=== PATIENT | female | born 1990 | race American Indian/Alaskan Native ===

== ENCOUNTER 2017-03-03 10:07 | Emergency (ER) | payer MEDICAID ==
[2017-03-03 10:49] VITALS: BP 126/82
--- NOTE | 2017-03-03 11:40 | Emergency Department Report ---
HPI - General Chief Complaint: Upper Respiratory Infection Time Seen by Provider: 03/03/17 11:34 - HPI HPI: This is a 26-year-old Afro-[place] female presents to the emergency department with a four-day history of bilateral earaches, throat discomfort and scratchiness and the sensation that there is some swelling in the throat as well. She denies any drooling or trismus. She denies any chest pain, fever, cough, nausea and vomiting. She denies any past medical history. She's been using [id number] anti-histamines for symptoms that any relief. Her primary care physician is Dr. Yevgeniy Goodman but she is not seen him regarding her symptoms. No recent travel or sick contacts at home. 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 ED Past Medical Hx - Past Medical History Previous Medical History?: No Hx Psychiatric Treatment: Yes (anxiety) Additional medical history: Intestinal problems @ age 3, chest pain and anxiety - Surgical History Past Surgical History?: No - Social History Smoking Status: Never Smoker Substance Use Type: None - Medications Home Medications: Home Medications Medication Instructions Recorded Confirmed Last Taken Type Cryselle-28 Tablet PO DAILY 11/20/14 11/20/14 11/20/14 History Famotidine [Pepcid] 20 mg PO BID #60 tablet 11/20/14 Unknown Rx Ibuprofen [Motrin] 800 mg PO Q8HR PRN #15 tablet 05/10/15 Unknown Rx Azithromycin [Zithromax Z-GRIFFIN] 250 mg PO DAILY #6 tab 03/03/17 Unknown Rx Fluticasone [Flonase] 1 spray NS BID #1 bottle 03/03/17 Unknown Rx ED Review of Systems ROS: Stated complaint: THROAT TIGHTNESS/EARACHE/HEADACHE/NOSE BLEED Other details as noted in HPI Comment: All other systems reviewed and negative Constitutional: denies: chills, fever Eyes: denies: eye pain, eye discharge, vision change ENT: ear pain, throat pain, epistaxis Respiratory: denies: cough, shortness of breath, wheezing Cardiovascular: denies: chest pain, palpitations Gastrointestinal: denies: abdominal pain, nausea, diarrhea Genitourinary: denies: urgency, dysuria, discharge Musculoskeletal: denies: back pain, joint swelling, arthralgia Skin: denies: rash, lesions Neurological: denies: headache, weakness, paresthesias Physical Exam - Physical Exam Vital Signs: Vital Signs 03/03/17 10:46 Temperature 98.2 F Pulse Rate 78 Respiratory 16 Rate Blood Pressure 126/82 O2 Sat by Pulse 100 Oximetry Physical Exam: GENERAL: The patient is well-developed well-nourished. HEENT: Normocephalic. Atraumatic. Extraocular motions are intact. Patient has moist mucous membranes. Pupils equal reactive to light bilaterally. Boggy nasal mucosa bilaterally. Oropharynx does not show any tonsillar hypertrophy or erythema but the posterior pharynx has a cobblestoning appearance. Patient has a scratchy sounding hoarse throat. Normal appearing bilateral external ear canals and tympanic membranes. NECK: Supple. Trachea is midline. CHEST/LUNGS: Clear to auscultation. There is no respiratory distress noted. HEART/CARDIOVASCULAR: Regular. There is no tachycardia. There is no gallop rub or murmur. ABDOMEN: Abdomen is soft, nontender. Patient has normal bowel sounds. There is no abdominal distention. SKIN: Skin is warm and dry. NEURO: The patient is awake, alert, and oriented. The patient is cooperative. The patient has no focal neurologic deficits. The patient has normal speech. MUSCULOSKELETAL: There is no tenderness or deformity. There is no limitation range of motion. There is no evidence of acute injury. ED Course Vital Signs 03/03/17 10:46 Temperature 98.2 F Pulse Rate 78 Respiratory 16 Rate Blood Pressure 126/82 O2 Sat by Pulse 100 Oximetry ED Medical Decision Making - Medical Decision Making Patient complains of some ear pain, scratchy sore throat and has appearance of postnasal drip. She has a hoarse scratchy voice as well. Vital signs stable including being afebrile. Patient placed on Flonase and Z-Griffin. Will follow-up with primary care. Will return to the ER with any worsening of her symptoms or any acute distress. - Differential Diagnosis sinusitis, postnasal drip, URI Critical Care Time: No Critical care attestation.: If time is entered above; I have spent that time in minutes in the direct care of this critically ill patient, excluding procedure time. ED Disposition Clinical Impression: Sinus drainage, Otalgia of both ears, Post-nasal drip Upper respiratory infection Qualifiers: URI type: unspecified URI Qualified Code(s): J06.9 - Acute upper respiratory infection, unspecified Disposition: DC-01 TO HOME OR SELFCARE Is pt being admited?: No Condition: Stable Instructions: Pharyngitis (ED), Upper Respiratory Infection (ED), Earache (ED) Additional Instructions: Please follow-up with your primary care physician in the next few days. Return to the emergency department with any worsening of your symptoms or any acute distress. You can use Tylenol every 4 hours and ibuprofen every 6 hours, using weight-based dosing, as needed for fever or discomfort. Prescriptions: Azithromycin [Zithromax Z-GRIFFIN] 250 mg PO DAILY #6 tab Fluticasone [Flonase] 1 spray NS BID #1 bottle Referrals: YEVGENIY PEREZ MD [Staff Physician] - 3-5 Days Forms: Work/School Release Form(ED) Time of Disposition: 11:40
== END 2017-03-03 12:05 | disposition home or self-care (01) ==
LOC: ED 10:07
DX: H92.03 Otalgia, bilateral (principal); R09.82 Postnasal drip; R09.89 Other specified symptoms and signs involving the circulatory and respiratory systems; J06.9 Acute upper respiratory infection, unspecified; F41.9 Anxiety disorder, unspecified
CPT/HCPCS: 99282

== ENCOUNTER 2017-03-28 11:55 | Emergency (ER) | payer MEDICAID ==
[2017-03-28 12:04] VITALS: BP 124/82
--- NOTE | 2017-03-28 12:30 | Emergency Department Report ---
ED ENT HPI - General Chief complaint: Earache Stated complaint: EAR ACHE/DISCOMFORT IN CHEST Time Seen by Provider: 03/28/17 12:25 Source: patient Mode of arrival: Ambulatory Limitations: No Limitations - History of Present Illness Initial comments: PT c/o earache x 3 days. PT states she was seen for same 3 weeks ago. PT states she took the entire Zpack but she does not think it worked. PT states her sore throat improved for 1 week after taking Z-pack. PT also c/o chest and sinus congestion. + sore throat. 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 denies: toothache, discharge from ear - Related Data Home Medications Medication Instructions Recorded Confirmed Last Taken Cryselle-28 Tablet PO DAILY 11/20/14 11/20/14 11/20/14 Previous Rx's Medication Instructions Recorded Last Taken Type Famotidine [Pepcid] 20 mg PO BID #60 tablet 11/20/14 Unknown Rx Ibuprofen [Motrin] 800 mg PO Q8HR PRN #15 tablet 05/10/15 Unknown Rx Fluticasone [Flonase] 1 spray NS BID #1 bottle 03/03/17 Unknown Rx Amoxicillin/K Clav Tab [Augmentin 1 tab PO Q12HR #20 tab 03/28/17 Unknown Rx 875 mg] Benzonatate [Tessalon Perles] 100 mg PO Q8HR PRN #12 capsule 03/28/17 Unknown Rx Ibuprofen [Motrin] 600 mg PO Q8H PRN #15 tablet 03/28/17 Unknown Rx Allergies Allergy/AdvReac Type Severity Reaction Status Date / Time No Known Allergies Allergy Unverified 03/03/17 10:49 ED Dental HPI - General Chief complaint: Earache Stated complaint: EAR ACHE/DISCOMFORT IN CHEST Time Seen by Provider: 03/28/17 12:25 Source: patient Mode of arrival: Ambulatory Limitations: No Limitations - Related Data Home Medications Medication Instructions Recorded Confirmed Last Taken Cryselle-28 Tablet PO DAILY 11/20/14 11/20/14 11/20/14 Previous Rx's Medication Instructions Recorded Last Taken Type Famotidine [Pepcid] 20 mg PO BID #60 tablet 11/20/14 Unknown Rx Ibuprofen [Motrin] 800 mg PO Q8HR PRN #15 tablet 05/10/15 Unknown Rx Fluticasone [Flonase] 1 spray NS BID #1 bottle 03/03/17 Unknown Rx Amoxicillin/K Clav Tab [Augmentin 1 tab PO Q12HR #20 tab 03/28/17 Unknown Rx 875 mg] Benzonatate [Tessalon Perles] 100 mg PO Q8HR PRN #12 capsule 03/28/17 Unknown Rx Ibuprofen [Motrin] 600 mg PO Q8H PRN #15 tablet 03/28/17 Unknown Rx Allergies Allergy/AdvReac Type Severity Reaction Status Date / Time No Known Allergies Allergy Unverified 03/03/17 10:49 ED Review of Systems ROS: Stated complaint: EAR ACHE/DISCOMFORT IN CHEST Other details as noted in HPI Comment: All other systems reviewed and negative Constitutional: denies: chills, fever ENT: as per HPI, ear pain Respiratory: cough Cardiovascular: as per HPI (chest congestion "Rattling") Gastrointestinal: denies: abdominal pain, nausea, vomiting Genitourinary: denies: abnormal menses (lmp today ) ED Past Medical Hx - Past Medical History Previous Medical History?: Yes Hx Psychiatric Treatment: Yes (anxiety) Additional medical history: Intestinal problems @ age 3, chest pain and anxiety , Earache - Surgical History Past Surgical History?: No - Social History Smoking Status: Never Smoker Substance Use Type: Alcohol, Non Opiate Pain - Medications Home Medications: Home Medications Medication Instructions Recorded Confirmed Last Taken Type Cryselle-28 Tablet PO DAILY 11/20/14 11/20/14 11/20/14 History Famotidine [Pepcid] 20 mg PO BID #60 tablet 11/20/14 Unknown Rx Ibuprofen [Motrin] 800 mg PO Q8HR PRN #15 tablet 05/10/15 Unknown Rx Fluticasone [Flonase] 1 spray NS BID #1 bottle 03/03/17 Unknown Rx Amoxicillin/K Clav Tab [Augmentin 1 tab PO Q12HR #20 tab 03/28/17 Unknown Rx 875 mg] Benzonatate [Tessalon Perles] 100 mg PO Q8HR PRN #12 capsule 03/28/17 Unknown Rx Ibuprofen [Motrin] 600 mg PO Q8H PRN #15 tablet 03/28/17 Unknown Rx ED Physical Exam - General Limitations: No Limitations General appearance: alert, in no apparent distress - Head Head exam: Present: atraumatic, normocephalic, normal inspection, other ( frontal sinus tenderness ) - Eye Eye exam: Present: normal appearance, PERRL, EOMI. Absent: conjunctival injection Pupils: Present: normal accommodation - ENT ENT exam: Present: normal external ear exam - Expanded ENT Exam Expanded Ear exam: Present: normal external inspection TM/Canal exam: Erythema: Left TM, Bulging: Left TM, Effusion: Left TM Mouth exam: Present: normal external inspection. Absent: drooling, trismus Teeth exam: Present: normal inspection Throat exam: Positive: tonsillar erythema, tonsillomegaly. Negative: tonsillar exudate, R peritonsillar mass, L peritonsillar mass - Neck Neck exam: Present: normal inspection, tenderness, full ROM, lymphadenopathy - Respiratory Respiratory exam: Present: normal lung sounds bilaterally. Absent: respiratory distress, wheezes, rales, rhonchi, stridor, chest wall tenderness, accessory muscle use - Cardiovascular Cardiovascular Exam: Present: regular rate, normal rhythm, normal heart sounds - Extremities Exam Extremities exam: Present: normal inspection, full ROM - Back Exam Back exam: Present: normal inspection, full ROM. Absent: tenderness, CVA tenderness (R), CVA tenderness (L), muscle spasm, paraspinal tenderness, vertebral tenderness - Neurological Exam Neurological exam: Present: alert, oriented X3, normal gait - Psychiatric Psychiatric exam: Present: normal affect, normal mood - Skin Skin exam: Present: warm, dry, intact, normal color ED Course Vital Signs 03/28/17 11:59 Temperature 98.7 F Pulse Rate 66 Respiratory 20 Rate Blood Pressure 124/82 O2 Sat by Pulse 100 Oximetry - Reevaluation(s) Reevaluation #1: 03/28/17 12:35 PT aware of abnormal PE findings. PT aware of plan of care. PT has no questions at this time. - Pulse Oximetry Interpretation Digit-Finger Initial Pulse Oximetry Readin ED Medical Decision Making - Differential Diagnosis om, oe, cerumen impaction Critical Care Time: No Critical care attestation.: If time is entered above; I have spent that time in minutes in the direct care of this critically ill patient, excluding procedure time. ED Disposition Clinical Impression: Otitis media with effusion Qualifiers: Laterality: left Qualified Code(s): H65.92 - Unspecified nonsuppurative otitis media, left ear Acute frontal sinusitis Qualifiers: Recurrence: not specified as recurrent Qualified Code(s): J01.10 - Acute frontal sinusitis, unspecified Pharyngitis Qualifiers: Pharyngitis/tonsillitis etiology: unspecified etiology Qualified Code(s): J02.9 - Acute pharyngitis, unspecified Disposition: TO HOME OR SELFCARE Is pt being admited?: No Does the pt Need Aspirin: No Condition: Stable Instructions: Pharyngitis (ED), Sinusitis (ED), Strep Throat (ED), Otitis Media (ED) Additional Instructions: Good hand washing when you are around children strep throat is contagious - make sure you wash all of your dishes/ utensils and change your toothbrush Follow up with PCP in 3-5 days Prescriptions: Amoxicillin/K Clav Tab [Augmentin 875 mg] 1 tab PO Q12HR #20 tab Benzonatate [Tessalon Perles] 100 mg PO Q8HR PRN #12 capsule PRN Reason: Cough Ibuprofen [Motrin] 600 mg PO Q8H PRN #15 tablet PRN Reason: Pain Referrals: YEVGENIY PEREZ MD [Staff Physician] - 3-5 Days [facility] [Outside] - 3-5 Days Forms: Work/School Release Form(ED) Time of Disposition: 12:40
== END 2017-03-28 13:18 | disposition home or self-care (01) ==
LOC: ED 11:55
DX: H65.93 Unspecified nonsuppurative otitis media, bilateral (principal); J01.10 Acute frontal sinusitis, unspecified; J02.9 Acute pharyngitis, unspecified
CPT/HCPCS: 99282

== ENCOUNTER 2017-09-06 20:01 | Emergency (ER) | payer MEDICAID ==
[2017-09-06] MEDS ORDERED: MOTRIN ONE (22:42)
[2017-09-06] MEDS ORDERED: MOTRIN PO ONE (22:46)
--- NOTE | 2017-09-06 23:58 | XRay Report ---
FINAL REPORT PROCEDURE: Cervical spine. TECHNIQUE: Three views. HISTORY: Right-sided neck pain. COMPARISON: No prior studies are available for comparison. FINDINGS: The cervical vertebrae have normal height and alignment. There are no fractures. There is no subluxation. The disc spaces are well maintained. The prevertebral soft tissues have normal thickness. IMPRESSION: Normal study.
--- NOTE | 2017-09-07 00:05 | XRay Report ---
FINAL REPORT PROCEDURE: Chest. TECHNIQUE: PA and lateral views. HISTORY: Right chestwall and upper back pain . COMPARISON: No prior studies are available for comparison. FINDINGS: The heart and mediastinum appear normal. The lungs are clear and well expanded. There are no pleural effusions. The soft tissues and regional skeleton are unremarkable. IMPRESSION: Normal study.
[2017-09-07] MEDS ORDERED: ZOFRAN ONE (01:49)
[2017-09-07] MEDS ORDERED: NACL 0.9% 1000 ML 2,000 ML ONE (01:49)
[2017-09-07] MEDS ORDERED: DILAUDID ONE (01:51)
[2017-09-07] MEDS ORDERED: DILAUDID IV ONE (02:00)
[2017-09-07] MEDS ORDERED: NORCO 5/325 PO ONE (04:51)
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
[2017-09-07 05:22] VITALS: BP 118/81
== END 2017-09-07 05:21 | disposition home or self-care (01) ==
LOC: ED 20:01
DX: S16.1XXA Strain of muscle, fascia and tendon at neck level, initial encounter (principal); S39.012A Strain of muscle, fascia and tendon of lower back, initial encounter; V49.49XA Driver injured in collision with other motor vehicles in traffic accident, initial encounter; Y93.89 Activity, other specified; Y92.89 Other specified places as the place of occurrence of the external cause; Y99.8 Other external cause status
CPT/HCPCS: 71046; 72040; 99283; J1170; J2405; J2930; J7030